=== PATIENT | male | born 1985 | race Caucasian/White ===

== ENCOUNTER 2023-12-18 06:31 | Inpatient (IN) | payer OTHER ==
[~2023-12-18] VITALS: Ht 162.6 cm; Wt 92.1 kg
[2023-12-18 06:37] VITALS: BP_SYST 113; PULSE 142; RESP 22; TEMP 96.8; O2SAT 97
[2023-12-18 07:37] LABS: BASOPHILS # (AUTO) 0.1 K/uL (0.0-0.2); BASOPHILS % (AUTO) 0.4 % (0.0-2.0); EOSINOPHILS % (AUTO) 0.2 % (0.0-4.0); HEMOGLOBIN 14.2 g/dL (14.0-18.0); LYMPHOCYTES # (AUTO) 1.1 K/uL (1.0-5.5); MEAN CORPUSCULAR HEMOGLOBIN 30 pg (27-31); MEAN CORPUSCULAR HGB CONC 35 % (32-36); MEAN CORPUSCULAR VOLUME 87 fL (79.0-98.0); MONOCYTES # (AUTO) 0.9 K/uL (0.0-1.0); NEUTROPHILS # (AUTO) 10.6 K/uL (1.8-7.7); NEUTROPHILS % (AUTO) 83.4 % (40.0-70.0); PLATELET COUNT (AUTO) 171 K/uL (130-430); RED BLOOD CELL COUNT(AUTO) 4.74 MIL/uL (4.2-6.2); RED CELL DISTRIBUTION WIDTH 12.6 % (9.0-15.0); WHITE BLOOD COUNT (AUTO) 12.7 K/uL (4.8-10.8)
[2023-12-18 07:43] LABS: ANION GAP 12 (5-15); CALCIUM 8.9 mg/dL (8.4-11.0); CARBON DIOXIDE 24 mmol/L (23-29); CHLORIDE 97 mmol/L (98-107); CREATININE 0.73 mg/dL (0.55-1.30); GFR AFRICAN AMERICAN 155 mL/min (>90); GLUCOSE 277 mg/dL (74-106); POTASSIUM 3.9 mmol/L (3.5-5.1); SODIUM SERUM 133 mmol/L (136-145); UREA NITROGEN, BLOOD 7 mg/dL (8-21)
[2023-12-18] MEDS: PIPERACILLIN/TAZO 3.375 GM in NS 50 ML IV ONE (07:45)
[2023-12-18 07:47] LABS: GFR NON AFRICAN-AMERICAN 128 mL/min (>90); INR 1.2 (0.80-1.20)
[2023-12-18] MEDS ORDERED: PIPERACILLIN/TAZOBACTAM 3.375 GM/VIAL (ZOSYN) IV ONE ×2 (07:48)
[2023-12-18 07:50] LABS: ALANINE AMINOTRANSFERASE 25 U/L (12-78); ALBUMIN 3.3 g/dL (3.4-4.8); ASPARTATE AMINOTRANSFERASE 11 U/L (10-37); BILIRUBIN,DIRECT 0.4 mg/dL (0.0-0.3); TOTAL BILIRUBIN 1.4 mg/dL (0.0-1.0); TOTAL PROTEIN, SERUM 7.1 g/dL (6.4-8.3)
[2023-12-18] MEDS ORDERED: VANCOMYCIN HCL 1000 MG/VIAL IV ONE ×2 (08:19→08:36)
[2023-12-18] MEDS: VANCOMYCIN HCL 1,000 MG in NS 250 ML IV ONE (08:46)
[2023-12-18] MEDS: ONDANSETRON HCL 4 MG/2 ML VIAL IVP ONE ×2 (08:46→11:39)
[2023-12-18] MEDS ORDERED: KETOROLAC TROMETHAMINE 15 MG VIAL IVP ONE (10:30)
[2023-12-18] MEDS ORDERED: ONDANSETRON HCL 4 MG/2 ML VIAL IVP ONE (10:30)
[2023-12-18] MEDS ORDERED: METF-379 PO (10:50)
[2023-12-18] MEDS ORDERED: HYDR-3917 PO (10:54)
[2023-12-18] MEDS ORDERED: KETOROLAC TROMETHAMINE 15 MG VIAL ONE (11:02)
[2023-12-18] MEDS ORDERED: ONDANSETRON HCL 4 MG/2 ML VIAL ONE (11:02)
[2023-12-18] MEDS: KETOROLAC TROMETHAMINE 15 MG VIAL IVP ONE (11:38)
[2023-12-18] MEDS ORDERED: DEXTROSE 50% JECT 50 ML DISP.SYRIN IVP PRN (13:30)
[2023-12-18] MEDS ORDERED: NALOXONE HCL 0.4 MG/ML AMP (NARCAN) IVP PRN ×2 (13:30→13:45)
[2023-12-18] MEDS ORDERED: HYDROcodone/ACETAMIN 5-325 MG TAB (NORCO/ VICODIN) PO PRN (13:30)
[2023-12-18] MEDS ORDERED: ONDANSETRON HCL 4 MG/2 ML VIAL IVP PRN (13:45)
[2023-12-18] MEDS ORDERED: ACETAMINOPHEN 325 MG TABLET PO PRN (13:45)
[2023-12-18] MEDS: metFORMIN HCL 500 MG TABLET PO ONE (15:03)
[2023-12-18] MEDS: NACL 0.9% 1,000 ML IV SCH (15:04)
[2023-12-18] MEDS: PIPERACILLIN/TAZO 3.375 GM in D5W 50 ML IV SCH (15:05)
[2023-12-18 17:27] VITALS: BP_SYST 113; PULSE 117; RESP 18; TEMP 99; O2SAT 96
[2023-12-18] MEDS: metFORMIN HCL 500 MG TABLET PO SCH (18:00)
[2023-12-18] MEDS: HYDROcodone/ACETAMIN 10-325 MG TAB PO PRN (19:42)
[2023-12-18 20:10] VITALS: O2SAT 96
[2023-12-18 20:53] VITALS: BP_SYST 114; PULSE 113; RESP 20; TEMP 97.3; O2SAT 96
[2023-12-18 20:54] VITALS: BP_SYST 114; PULSE 113; RESP 20; TEMP 97.3; O2SAT 96
[2023-12-18] MEDS: LACTOBACILLUS RHAMNOSUS GG 1 CAP CAPSULE PO SCH (21:19)
[2023-12-18] MEDS: INSULIN REGULAR, HUMAN 100 UNITS/ML, 3 ML VIAL (humuLIN R) SUBCUT PRN (21:23)
[2023-12-19 01:59] VITALS: BP_SYST 113; PULSE 108; RESP 18; TEMP 98.4; O2SAT 96
[2023-12-19 05:21] LABS: BILIRUBIN,URINE NEGATIVE (NEGATIVE); BLOOD, URINE NEGATIVE (NEGATIVE); CLARITY/URINE CLEAR (CLEAR); COLOR,URINE YELLOW (YELLOW); GLUCOSE,URINE 3+ (NEGATIVE); KETONES,URINE 2+ (NEGATIVE); LEUKOCYTE ESTERASE ,URINE NEGATIVE (NEGATIVE); NITRITE, URINE NEGATIVE (NEGATIVE); PROTEIN URINE NEGATIVE (NEGATIVE)
[2023-12-19 05:58] LABS: BASOPHILS % (AUTO) 0.2 % (0.0-2.0); EOSINOPHILS # (AUTO) 0.1 K/uL (0.0-0.4); EOSINOPHILS % (AUTO) 0.4 % (0.0-4.0); HEMATOCRIT 36.1 % (36-54); HEMOGLOBIN 12.6 g/dL (14.0-18.0); LYMPHOCYTES # (AUTO) 1.4 K/uL (1.0-5.5); LYMPHOCYTES % (AUTO) 11.8 % (20.5-51.5); MEAN CORPUSCULAR HEMOGLOBIN 30 pg (27-31); MEAN CORPUSCULAR HGB CONC 35 % (32-36); MEAN CORPUSCULAR VOLUME 86 fL (79.0-98.0); MONOCYTES # (AUTO) 0.8 K/uL (0.0-1.0); NEUTROPHILS # (AUTO) 9.8 K/uL (1.8-7.7); NEUTROPHILS % (AUTO) 80.6 % (40.0-70.0); PLATELET COUNT (AUTO) 169 K/uL (130-430); RED BLOOD CELL COUNT(AUTO) 4.19 MIL/uL (4.2-6.2); RED CELL DISTRIBUTION WIDTH 12.5 % (9.0-15.0); WHITE BLOOD COUNT (AUTO) 12.1 K/uL (4.8-10.8)
[2023-12-19 08:00] VITALS: O2SAT 99
[2023-12-19 08:20] LABS: ALBUMIN 2.7 g/dL (3.4-4.8); CALCIUM 8.4 mg/dL (8.4-11.0); CREATININE 0.69 mg/dL (0.55-1.30); POTASSIUM 3.6 mmol/L (3.5-5.1); TOTAL BILIRUBIN 1.2 mg/dL (0.0-1.0); TOTAL PROTEIN, SERUM 6.4 g/dL (6.4-8.3)
[2023-12-19 08:28] VITALS: BP_SYST 103; PULSE 106; RESP 18; TEMP 98; O2SAT 97
[2023-12-19 11:27] VITALS: BP_SYST 107; PULSE 76; RESP 16; TEMP 97.8; O2SAT 99
[2023-12-19 15:34] VITALS: BP_SYST 110; PULSE 103; RESP 16; TEMP 98.4; O2SAT 99
[2023-12-19 20:00] VITALS: O2SAT 98
[2023-12-20 04:00] VITALS: BP_SYST 114; PULSE 89; RESP 18; TEMP 98; O2SAT 99
[2023-12-20 06:07] LABS: BASOPHILS % (AUTO) 0.3 % (0.0-2.0); EOSINOPHILS # (AUTO) 0.2 K/uL (0.0-0.4); EOSINOPHILS % (AUTO) 1.6 % (0.0-4.0); HEMATOCRIT 34.4 % (36-54); HEMOGLOBIN 11.9 g/dL (14.0-18.0); LYMPHOCYTES # (AUTO) 1.7 K/uL (1.0-5.5); LYMPHOCYTES % (AUTO) 14.6 % (20.5-51.5); MEAN CORPUSCULAR HEMOGLOBIN 30 pg (27-31); MEAN CORPUSCULAR HGB CONC 35 % (32-36); MEAN CORPUSCULAR VOLUME 86 fL (79.0-98.0); MONOCYTES # (AUTO) 1.1 K/uL (0.0-1.0); MONOCYTES % (AUTO) 9.5 % (1.7-9.3); NEUTROPHILS # (AUTO) 8.8 K/uL (1.8-7.7); PLATELET COUNT (AUTO) 188 K/uL (130-430); RED BLOOD CELL COUNT(AUTO) 3.99 MIL/uL (4.2-6.2); RED CELL DISTRIBUTION WIDTH 12.7 % (9.0-15.0); WHITE BLOOD COUNT (AUTO) 11.9 K/uL (4.8-10.8)
[2023-12-20 06:14] LABS: ALBUMIN 2.5 g/dL (3.4-4.8); CALCIUM 8.3 mg/dL (8.4-11.0); CREATININE 0.67 mg/dL (0.55-1.30); POTASSIUM 3.3 mmol/L (3.5-5.1); TOTAL BILIRUBIN 0.9 mg/dL (0.0-1.0); TOTAL PROTEIN, SERUM 6.2 g/dL (6.4-8.3)
[2023-12-20] MEDS: LIDOCAINE 1% 10 MG/ML, 20 ML MDV INJ ONE (07:30)
[2023-12-20 08:00] VITALS: O2SAT 99
[2023-12-20 08:20] VITALS: BP_SYST 112; PULSE 92; RESP 18; TEMP 99.4; O2SAT 97
[2023-12-20] MEDS: POTASSIUM CHLORIDE 20 MEQ TABLET.ER PO ONE (12:12)
[2023-12-20] MEDS: metFORMIN HCL 500 MG TABLET PO ONE (15:29)
[2023-12-20 16:44] VITALS: BP_SYST 110; PULSE 88; RESP 16; TEMP 99; O2SAT 99
[2023-12-20] MEDS: metFORMIN HCL 500 MG TABLET PO SCH (18:09)
[2023-12-20 20:10] VITALS: BP_SYST 117; PULSE 95; RESP 20; TEMP 97; O2SAT 99
[2023-12-21 00:04] VITALS: BP_SYST 121; PULSE 89; RESP 18; TEMP 98; O2SAT 98
[2023-12-21 08:39] VITALS: BP_SYST 116; PULSE 88; RESP 18; TEMP 98.6; O2SAT 96
[2023-12-21 08:44] LABS: BASOPHILS % (AUTO) 0.4 % (0.0-2.0); EOSINOPHILS # (AUTO) 0.3 K/uL (0.0-0.4); EOSINOPHILS % (AUTO) 3.1 % (0.0-4.0); HEMATOCRIT 36.5 % (36-54); HEMOGLOBIN 12.9 g/dL (14.0-18.0); LYMPHOCYTES # (AUTO) 1.6 K/uL (1.0-5.5); LYMPHOCYTES % (AUTO) 17.9 % (20.5-51.5); MEAN CORPUSCULAR HEMOGLOBIN 30 pg (27-31); MEAN CORPUSCULAR HGB CONC 35 % (32-36); MEAN CORPUSCULAR VOLUME 87 fL (79.0-98.0); MONOCYTES # (AUTO) 0.9 K/uL (0.0-1.0); MONOCYTES % (AUTO) 10.7 % (1.7-9.3); NEUTROPHILS % (AUTO) 67.9 % (40.0-70.0); PLATELET COUNT (AUTO) 222 K/uL (130-430); RED BLOOD CELL COUNT(AUTO) 4.22 MIL/uL (4.2-6.2); RED CELL DISTRIBUTION WIDTH 12.4 % (9.0-15.0); WHITE BLOOD COUNT (AUTO) 8.9 K/uL (4.8-10.8)
[2023-12-21 09:09] LABS: ALBUMIN 2.4 g/dL (3.4-4.8); CALCIUM 8.5 mg/dL (8.4-11.0); CREATININE 0.63 mg/dL (0.55-1.30); POTASSIUM 3.6 mmol/L (3.5-5.1); TOTAL BILIRUBIN 0.5 mg/dL (0.0-1.0); TOTAL PROTEIN, SERUM 6.4 g/dL (6.4-8.3)
[2023-12-21 09:15] VITALS: O2SAT 96
[2023-12-21 12:00] VITALS: BP_SYST 111; PULSE 78; RESP 18; TEMP 97.3; O2SAT 98
[2023-12-21] MEDS ORDERED: NS 1000 ML IV.SOLN IV ONE (16:40)
[2023-12-21] MEDS ORDERED: PROPOFOL 200MG/ 20ML VIAL (DIPRIVAN) IV ONE (16:40)
[2023-12-21] MEDS ORDERED: fentaNYL CITRATE/PF 100 MCG/2 ML AMP ONE (16:40)
[2023-12-21] MEDS ORDERED: LIDOCAINE 2%, 20 ML MDV ONE (16:40)
[2023-12-21] MEDS ORDERED: METOCLOPRAMIDE HCL 10 MG/2 ML VIAL ONE (16:40)
[2023-12-21] MEDS ORDERED: LIDOCAINE/EPI 1% 1:100000 20 ML VIAL ONE (16:40)
[2023-12-21] MEDS ORDERED: ONDANSETRON HCL 4 MG/2 ML VIAL ONE (16:40)
[2023-12-21] MEDS ORDERED: SEVOFLURANE 15 MIN GAS INH ONE (16:40)
[2023-12-21] MEDS ORDERED: MIDAZOLAM HCL/PF 2 MG/2 ML SYRINGE ONE (16:40)
[2023-12-21] MEDS ORDERED: KETOROLAC TROMETHAMINE 30 MG VIAL IVP PRN (17:30)
[2023-12-21] MEDS ORDERED: ONDANSETRON HCL 4 MG/2 ML VIAL IVP PRN (17:30)
[2023-12-21] MEDS ORDERED: HYDROmorphone 2 MG/ML VIAL IVP PRN (17:30)
[2023-12-21] MEDS ORDERED: HYDROmorphone 1 MG/ML INJ. CARTRIDGE IVP PRN (17:30)
[2023-12-21] MEDS: metFORMIN HCL 500 MG TABLET PO SCH (18:00)
[2023-12-21 20:10] VITALS: BP_SYST 103; PULSE 96; RESP 16; TEMP 98.1; O2SAT 98
[2023-12-21] MEDS: LR 1,000 ML IV SCH (22:55)
[2023-12-22] VITALS (7 sets, daily range): BP systolic 106–120; PULSE 53–81; RESP 16–20; TEMP 97.2–99; O2SAT 95–99
[2023-12-22 06:35] LABS: ALBUMIN 2.4 g/dL (3.4-4.8); CALCIUM 8.6 mg/dL (8.4-11.0); CREATININE 0.75 mg/dL (0.55-1.30); POTASSIUM 4.1 mmol/L (3.5-5.1); TOTAL BILIRUBIN 0.4 mg/dL (0.0-1.0); TOTAL PROTEIN, SERUM 6.4 g/dL (6.4-8.3)
[2023-12-22 06:37] LABS: BASOPHILS % (AUTO) 0.6 % (0.0-2.0); EOSINOPHILS # (AUTO) 0.4 K/uL (0.0-0.4); EOSINOPHILS % (AUTO) 4.7 % (0.0-4.0); HEMATOCRIT 35.5 % (36-54); HEMOGLOBIN 12.5 g/dL (14.0-18.0); LYMPHOCYTES % (AUTO) 25.8 % (20.5-51.5); MEAN CORPUSCULAR HEMOGLOBIN 30 pg (27-31); MEAN CORPUSCULAR HGB CONC 35 % (32-36); MEAN CORPUSCULAR VOLUME 86 fL (79.0-98.0); MONOCYTES # (AUTO) 0.8 K/uL (0.0-1.0); MONOCYTES % (AUTO) 9.8 % (1.7-9.3); NEUTROPHILS # (AUTO) 4.6 K/uL (1.8-7.7); NEUTROPHILS % (AUTO) 59.1 % (40.0-70.0); PLATELET COUNT (AUTO) 238 K/uL (130-430); RED BLOOD CELL COUNT(AUTO) 4.11 MIL/uL (4.2-6.2); RED CELL DISTRIBUTION WIDTH 12.5 % (9.0-15.0); WHITE BLOOD COUNT (AUTO) 7.8 K/uL (4.8-10.8)
[2023-12-22] MEDS: MORPHINE 4 MG INJ. 4 MG/ML VIAL IVP PRN (16:54)
[2023-12-22] MEDS: VANCOMYCIN HCL 1,500 MG in NS 500 ML IV ONE (21:00)
[2023-12-22] MEDS: VANCOMYCIN HCL 1000 MG/VIAL IV ONE (22:58)
[2023-12-22] MEDS: VANCOMYCIN HCL 500 MG/VIAL IV ONE (22:59)
[2023-12-23 08:20] VITALS: BP_SYST 109; PULSE 76; RESP 18; TEMP 99; O2SAT 99
[2023-12-23] MEDS: VANCOMYCIN HCL 1.25 GM/NS 250 ML IV SCH (09:06)
[2023-12-23 10:00] VITALS: O2SAT 99
[2023-12-23 12:00] VITALS: BP_SYST 107; PULSE 64; RESP 18; TEMP 97.2; O2SAT 99
[2023-12-23 20:00] VITALS: BP_SYST 109; PULSE 79; RESP 17; TEMP 97.2; O2SAT 97
[2023-12-24 08:34] VITALS: BP_SYST 125; PULSE 74; RESP 18; TEMP 97.8; O2SAT 98
[2023-12-24 09:30] VITALS: O2SAT 98
[2023-12-24 12:00] VITALS: BP_SYST 111; PULSE 79; RESP 18; TEMP 97.8; O2SAT 98
[2023-12-24 16:00] VITALS: BP_SYST 108; PULSE 78; RESP 19; TEMP 98.4; O2SAT 98
[2023-12-24] MEDS ORDERED: LACT1CAP57 PO (17:31)
[2023-12-24] MEDS ORDERED: AUG875 PO (17:31)
[2023-12-24] MEDS ORDERED: METF-833 PO (17:32)
[2023-12-24 18:48] VITALS: BP_SYST 107; PULSE 75; RESP 18; TEMP 98.2; O2SAT 98
[2023-12-24 18:54] VITALS: BP_SYST 107; PULSE 88; RESP 18; TEMP 98.2; O2SAT 98
== END 2023-12-24 20:00 | disposition home health service (06) | DRG 854 ==
LOC: SED 06:31 → SMU 09:31
PROVIDERS: ADMIT Internal Medicine; ATTEND Internal Medicine
PROC: 0KBM0ZZ Excision of Perineum Muscle, Open Approach (ICD-10-PCS; principal; 2023-12-21 16:52)
DX: A41.9 Sepsis, unspecified organism (principal); L02.215 Cutaneous abscess of perineum; L03.315 Cellulitis of perineum; E11.9 Type 2 diabetes mellitus without complications; E66.9 Obesity, unspecified; R16.2 Hepatomegaly with splenomegaly, not elsewhere classified; Z79.899 Other long term (current) drug therapy; Z68.34 Body mass index [BMI] 34.0-34.9, adult
CPT/HCPCS: 36415; 71045; 76770; 76870; 80048; 80053; 80076; 81001; 81003; 82948; 83037; 83605; 84484; 85025; 85610; 85730; 87040; 87070; 87075; 87081; 87086; 87101; 93005; 96365; 96367; 96375; 99285; J1815; J1885; J2001; J2270; J2405; J2543; J2704; J2765; J3010; J3370; J3465; J7030; J7040; J7060